=== PATIENT | female | born 1950 | race Caucasian/White ===

== ENCOUNTER 2021-07-20 20:18 | Emergency (ER) | payer OTHER, MEDICARE ==
[~2021-07-20 20:18] MED LIST: ACIDOPHILUS1 EAC4 PO; ASPIRIN EC81 MG PO; CALCIUM WITH V1 EAC1 PO; COQ-10100 MG PO; HCTZ25 MG PO; HYDROCHLOROT PO; IBUPROFEN400 MG PO; LIPITOR 10MG TA10 MG PO; MEDROL 4MG DOSEP4 MG PO; NORCO 5-325 TA1 EACH PO; NORVASC5 MG PO; PERCOCET 5-3251 EACH PO; VITAMIN B122500 MCG PO; VITAMIN E400 UNI1 PO; ZESTRIL40 MG PO
[2021-07-20] MEDS ORDERED: FLEXERIL5 MG PO (22:04)
== END 2021-07-20 22:35 | disposition home or self-care (01) ==
LOC: FER 20:18
DX: S16.1XXA Strain of muscle, fascia and tendon at neck level, initial encounter (principal); S39.012A Strain of muscle, fascia and tendon of lower back, initial encounter; V49.40XA Driver injured in collision with unspecified motor vehicles in traffic accident, initial encounter
CPT/HCPCS: 72050; 72110